=== PATIENT | female | born 1995 | race Caucasian/White ===

== ENCOUNTER 2017-10-03 18:47 | Emergency (ER) | payer BC ==
[~2017-10-03] VITALS: Ht 160 cm; Wt 57.1 kg
[2017-10-03 18:54] VITALS: Ht 160 cm; Wt 57.1 kg
[2017-10-03 20:41] LABS: UA SPECIFIC GRAVITY 1.025 (1.005-1.035); microscopic required? YES; urine erythrocyte NEGATIVE (NEGATIVE)
[2017-10-03 21:57] VITALS: BP 105/71
== END 2017-10-03 21:57 | disposition home or self-care (01) ==
LOC: ED 18:47
PROVIDERS: Emergency Medicine
DX: O20.0 Threatened abortion (principal); Z3A.18 18 weeks gestation of pregnancy
CPT/HCPCS: Q0092